=== PATIENT | male | born 1990 | race African-American/Black ===

== ENCOUNTER 2016-06-30 02:22 | Emergency (ER) | payer OTHER ==
[~2016-06-30] VITALS: Ht 177.8 cm; Wt 71.0 kg
[2016-06-30 02:25] VITALS: BP 128/81; PULSE 66; RESP 18; TEMP 98.1; O2SAT 96
[2016-06-30] MEDS ORDERED: ROSU20 PO (02:38)
[2016-06-30] MEDS ORDERED: LABE100T2 PO (02:38)
[2016-06-30] MEDS ORDERED: PRAS5TAB PO (02:38)
[2016-06-30] MEDS ORDERED: IBUP800T23 PO (02:38)
[2016-06-30] MEDS ORDERED: ASPI81TA81 PO (02:38)
[2016-06-30] MEDS ORDERED: IBUPROFEN 600 MG TAB PO ONE (02:45)
[2016-06-30] MEDS ORDERED: SODIUM CHLORIDE 0.9% FLUSH 5 ML FLUSH IVF PRN (02:45)
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
[2016-06-30 03:14] LABS: AUTOMATED NEUTROPHIL # 5.3 TH/MM3 (1.8-7.7); BASOPHIL # 0.1 TH/MM3 (0-0.2); BASOPHIL % 0.6 % (0.0-2.0); EOSINOPHIL # 0.1 TH/MM3 (0-0.4); EOSINOPHIL % 1.3 % (0.0-4.0); HEMATOCRIT 41.1 % (39.0-51.0); HEMO FLAGS DIFF FINAL; LYMPH % 30.9 % (9.0-44.0); LYMPHOCYTE # 2.9 TH/MM3 (1.0-4.8); MEAN CELL VOLUME 91.5 FL (80.0-100.0); MEAN CORPUSCULAR HEMOGLOBIN 30.8 PG (27.0-34.0); MEAN CORPUSCULAR HGB CONC 33.6 % (32.0-36.0); MONO % 10.1 % (0.0-8.0); NEUT % 57.1 % (16.0-70.0); PLATELET COUNT 255 TH/MM3 (150-450); RED BLOOD COUNT 4.49 MIL/MM3 (4.50-5.90); RED CELL DISTRIBUTION WIDTH 13.3 % (11.6-17.2); WHITE BLOOD COUNT 9.4 TH/MM3 (4.0-11.0)
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
[2016-06-30 03:24] LABS: INTERNATIONAL NORMALIZED RATIO 1.1 RATIO; PROTHROMBIN TIME - PATIENT 11.7 SEC (9.8-11.6)
[2016-06-30 03:37] LABS: BICARBONATE 29.4 MEQ/L (21.0-32.0); POTASSIUM 3.6 MEQ/L (3.5-5.1)
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
[2016-06-30 04:22] LABS: BLOOD, URINE NEG (NEG); COMMENT (UR) CULTURE INDICATED; CULTURE IF INDICATED CULTURE INDICATED; GLUCOSE,URINE NEG (NEG); KETONE, URINE NEG (NEG); MUCUS URINE FEW /lpf (OCC); NITRITE,URINE NEG (NEG); PH, URINE 6.5 (5.0-8.5); SQUAMOUS EPITHELIAL CELL URINE 1 /hpf (0-5); URINE COLOR LIGHT-YELLOW (YELLW/STRAW)
[2016-06-30 05:07] VITALS: O2SAT 98
[2016-06-30 05:09] VITALS: BP 121/69; PULSE 69; RESP 18; O2SAT 98
[2016-06-30 05:14] VITALS: RESP 18
== END 2016-06-30 05:09 | disposition home or self-care (01) ==
LOC: NEPC 02:22
DX: S13.4XXA Sprain of ligaments of cervical spine, initial encounter (principal); R07.9 Chest pain, unspecified; M54.5 Low back pain; V49.40XA Driver injured in collision with unspecified motor vehicles in traffic accident, initial encounter; Y92.488 Other paved roadways as the place of occurrence of the external cause
CPT/HCPCS: 70450; 71010; 72040; 72100; 72170; 80048; 81001; 85025; 85610; 87086